=== PATIENT | male | born 1990 | race Asian ===

== ENCOUNTER 2021-02-13 17:37 | Emergency (ER) | payer BC ==
[2021-02-13 18:24] VITALS: BMI 33.0
[2021-02-13] MEDS ORDERED: CASIRIVIMAB/IMDEVIMAB 10 ML in SODIUM CHLORIDE 100 ML IVPB ONE (19:29)
[2021-02-13] MEDS ORDERED: ACETAMINOPHEN 500 MG TABLET (FP) PO ONE (20:25)
[2021-02-13] MEDS ORDERED: ACETAMINOPHEN 500 MG TABLET (FP) ONE (20:25)
[2021-02-13 20:51] LABS: HEMATOCRIT 42.3 % (35.4-49); HEMOGLOBIN 14.7 GM/dL (11.7-16.9); MCH 28.7 pg (25.7-33.7); MCHC 34.8 g/dl (32.0-35.9); MEAN CELL VOLUME 82.5 fl (80-96); MEAN PLT VOLUME 8.7 fl (7.5-11.1); PLATELET COUNT 163 10^3/uL (134-434); RBC 5.13 M/mm3 (4.00-5.60); RDW 13.2 % (11.9-15.9); WHITE BLOOD COUNT 3.9 K/mm3 (4.0-10.0)
[2021-02-13 21:10] LABS: ALBUMIN 3.5 g/dl (3.4-5.0); BLOOD UREA NITROGEN 10.1 mg/dL (7-18); CALCIUM 7.7 mg/dL (8.5-10.1)
[2021-02-13 21:13] LABS: BILIRUBIN,TOTAL 0.6 mg/dL (0.2-1); TOT PROT 7.4 g/dl (6.4-8.2)
[2021-02-13 21:14] LABS: CREATININE 1.2 mg/dL (0.55-1.3)
[2021-02-13 22:03] VITALS: BP 121/76; PULSE 93; TEMP 99.7
== END 2021-02-13 23:20 | disposition home or self-care (01) ==
LOC: JCOVINFU 17:37
DX: U07.1 COVID-19 (principal)
CPT/HCPCS: 36415; 71045-TC-FY; 71275-TC; 80053; 85027; 99285-25; Q0240; Q9967